=== PATIENT | female | born 1970 | race Hispanic/Latino ===

== ENCOUNTER 2016-05-18 23:36 | Emergency (ER) ==
[2016-05-18] MEDS ORDERED: DILAUDID IV ONE (23:51)
[2016-05-18] MEDS ORDERED: ZOFRAN IV ONE (23:52)
--- NOTE | 2016-05-18 23:56 | PROVIDER DOCUMENTATION ---
HPI-Abdominal Pain/GI Problem - General Chief Complaint: Abdominal Pain Stated Complaint: LT SIDE PAIN Time Seen by Provider: 05/18/16 23:43 Source: patient, family Allergies/Adverse Reactions: Patient Allergies Allergy/AdvReac Type Severity Reaction Status Date / Time No Known Allergies Allergy Verified 05/19/16 00:10 - History of Present Illness-ABD Nature of Presenting Problems: Pt is a 45 yof who presents to ER with CC of abdominal pain x4 days. Pt does not speak Vincentian, but her daughter who was with pt does speak Vincentian. Pt reports LLQ pain with constipation and vomiting. Pt describes pain as sharp, and her last meal was around 1900. Abdominal Pain Onset Location: reports: LLQ Quality of Pain: reports: sharp Severity in ED: reports: mild Onset/Duration: reports: 4 days ago Timing: reports: still present Associated Symptoms: reports: constipation, vomiting. denies: diarrhea, loss of appetite, nausea Last BM: unsure Review of Systems - Adult - REVIEW OF SYSTEMS - ADULT Constitutional: denies: chills, fever, fatique Eyes: reports: no symptoms reported Ears, Nose, Mouth & Throat: reports: no symptoms reported Cardiovascular: reports: no symptoms reported Respiratory: reports: no symptoms reported Gastrointestinal: reports: abdominal pain, constipation, vomiting. denies: hematemesis, diarrhea, nausea, poor appetite Genitourinary: reports: no symptoms reported Musculoskeletal: reports: no symptoms reported Integumentary: reports: no symptoms reported Neurological: reports: no symptoms reported Psychiatric: reports: no symptoms reported Endocrine: reports: no symptoms reported Hematologic/Lymphatic: reports: no symptoms reported Allergic/Immunologic: reports: no symptoms reported All Other Systems: Reviewed and Negative Past History - Adult - PAST MEDICAL HISTORY-ADULT Review of Records: reports: Nursing Assessment Review, Medications Reviewed - IMMUNIZATION STATUS Childhood Immunizations: See Nurse Assessment Flu Vaccine: See Nurse Assessment Physical Exam-General - PHYSICAL EXAM-ADULT Initial Vital Signs Reviewed: Yes - CONSTITUTIONAL General Appearance: alert, moderate distress - EYES Eyes: PERRL/EOMI, pink conjunctivae, fundi clear, no AV nicking - HEAD, EARS, NOSE, MOUTH & THROAT HENMT: normocephalic/atraumatic, moist mucous membranes - NECK Neck: non-tender, full range of motion, supple - RESPIRATORY Respiratory: chest non-tender, lungs clear, normal breath sounds - CARDIOVASCULAR Cardiovascular: normal peripheral pulses, regular rate, rhythm - GASTROINTESTINAL (ABDOMEN) Abdominal Exam: soft, abnormal bowel sounds (decreased bowel sounds), tenderness (LLQ) - LYMPHATIC Lymphatic: no adenopathy - MUSCULOSKELETAL Back Exam: no CVA tenderness, no vertebral tenderness Extremity: normal range of motion, non-tender, normal gait - NEUROLOGIC Neurologic: grossly normal, no motor/sensory deficits - PSYCHIATRIC Psych/Mental Status: normal thought content, normal thought process, oriented x 3, anxious Progress - PLAN OF CARE/RESULTS Progress/Plan/Lab Results: Vital Signs - 24 hr 05/18/16 23:38 Temperature 97.4 F L Pulse Rate 69 Respiratory 22 Rate Blood Pressure 202/118 O2 Sat by Pulse 100 Oximetry Orders Category Date Time Status ED: Urine Bedside ORDERED Care 05/19/16 00:14 Active Saline Loc DIRECTED Care 05/18/16 23:51 Active NPO Diet 05/18/16 23:[address] ABD/PELVIS W/ IV CONT ONLY [CT] Stat Exams 05/18/16 23:52 Taken CBC WITH ELECTRONIC DIFF [HEME] Stat Lab 05/19/16 00:21 Completed COMPREHENSIVE METABOLIC PANEL [CHEM] Stat Lab 05/19/16 00:21 Completed LIPASE [CHEM] Stat Lab 05/19/16 00:21 Completed TEST-SERUM [PREG] Stat Lab 05/19/16 00:21 Completed URINALYSIS W/POSS RFLX CULT [URINALYSIS] Stat Lab 05/19/16 00:13 Completed Hydromorphone [Dilaudid] Med 05/18/16 23:51 Discontinued 1 mg IV NOW ONE Ketorolac [Toradol] Med 05/19/16 00:58 Discontinued 30 mg IV NOW ONE Ondansetron [Zofran] Med 05/18/16 23:52 Discontinued 4 mg IV NOW ONE Laboratory Tests 05/19/16 05/19/16 05/19/16 00:13 00:21 00:21 WBC 11.90 H RBC 5.06 Hgb 14.9 Hct 43.4 MCV 85.8 MCH 29.4 MCHC 34.3 RDW Std Deviation 12.6 Plt Count 308 MPV 10.3 Immature Gran % (Auto) 0.4 Neut % (Auto) 67.6 Lymph % (Auto) 19.5 L [place] % (Auto) 12.1 H Eos % (Auto) 0.1 Baso % (Auto) 0.3 Immature Gran # (Auto) 0.05 H Neut # (Auto) 8.04 H Lymph # (Auto) 2.32 [place] # (Auto) 1.44 H Eos # (Auto) 0.01 Baso # (Auto) 0.04 Sodium 136 Potassium 3.8 Chloride 98 Carbon Dioxide 21 L Anion Gap 17 BUN 15 Creatinine 0.9 Estimated GFR/1.73 m2 > 60 BUN/Creatinine Ratio 17 Glucose 119 H Calculated Osmolality 274 Calcium 9.2 Total Bilirubin 0.41 AST 52 H ALT 45 H Alkaline Phosphatase 134 H Total Protein 8.5 H Albumin 4.0 Globulin 4.5 Albumin/Globulin Ratio 0.9 Lipase 32 Serum , Qual Urine Source CLEAN CATCH Urine Color YELLOW Urine Turbidity CLEAR Urine pH 6.5 Ur Specific [place] 1.014 Urine Protein 100 A Ur Glucose (Stick) NEGATIVE Ur Ketones (Stick) NEGATIVE Urine Blood SMALL A Urine Nitrite NEGATIVE Urine Bilirubin NEGATIVE Urobilinogen Dipstick NORMAL Urine Leukocytes NEGATIVE Urine WBC (Auto) <10 Urine RBC (Auto) 20-40 A U Epithel Cells (Auto) <10 Urine Bacteria (Auto) NEGATIVE 05/19/16 00:21 WBC RBC Hgb Hct MCV MCH MCHC RDW Std Deviation Plt Count MPV Immature Gran % (Auto) Neut % (Auto) Lymph % (Auto) [place] % (Auto) Eos % (Auto) Baso % (Auto) Immature Gran # (Auto) Neut # (Auto) Lymph # (Auto) [place] # (Auto) Eos # (Auto) Baso # (Auto) Sodium Potassium Chloride Carbon Dioxide Anion Gap BUN Creatinine Estimated GFR/1.73 m2 BUN/Creatinine Ratio Glucose Calculated Osmolality Calcium Total Bilirubin AST ALT Alkaline Phosphatase Total Protein Albumin Globulin Albumin/Globulin Ratio Lipase Serum , Qual NEGATIVE Urine Source Urine Color Urine Turbidity Urine pH Ur Specific [place] Urine Protein Ur Glucose (Stick) Ur Ketones (Stick) Urine Blood Urine Nitrite Urine Bilirubin Urobilinogen Dipstick Urine Leukocytes Urine WBC (Auto) Urine RBC (Auto) U Epithel Cells (Auto) Urine Bacteria (Auto) - CT/MRI 1 CT Study: Abdomen, Pelvis Impression: See EMR Report (Stone mid aspect of L ureter, 4x5mm. There is mild L hydronephrosis) Departure - Departure Time of Disposition Order: 02:01 DIAGNOSIS: Ureteral calculus, left Disposition: HOME 01 Certified Medical Emergency: Emergent Condition: Stable Additional Instructions: strain all urine, followup with urologist, Dr. Traore, in 1-2 days, plenty of fluids Prescriptions: Hydrocodone/APAP 5 mg/325 mg [[place]-5] 1 tab PO Q6H PRN PRN #14 tablet PRN Reason: Pain Ondansetron HCl [Zofran] 1 tab PO Q6H PRN PRN #12 tab PRN Reason: Vomiting Referrals: None,PCP [Primary Care Provider] - Kameron Traore MD [STAFF PHYSICIAN] - Instructions: Kidney Stones, [id number] Attestation - Scribe Verification/Attestation Scribe:: James Tyler Acting as Scribe for:: Stanley Rodriguez Scribe documention review:: This chart was documented by a scribe and accurately reflects the service the provider performed and the decisions made by the provider.
[2016-05-19 00:34] LABS: MANUAL DIFF NEEDED? NO
[2016-05-19 00:34] LABS: URINE CULTURE NEEDED? NO; URINE MICRO REVIEW NEEDED? NO; URINE SOURCE CLEAN CATCH
[2016-05-19 00:49] LABS: BASO% 0.3 % (0.0-0.8); EOS# 0.01 X1000 (0.0-0.7); EOS% 0.1 % (0.0-10.0); HEMATOCRIT 43.4 % (37.0-47.0); HEMOGLOBIN 14.9 g/dL (12.0-16.0); IMM GRAN# 0.05 X1000 (0.0-0.04); IMM GRAN% 0.4 % (0.0-0.5); LYMPH# 2.32 X1000 (1.2-3.4); LYMPH% 19.5 % (20.5-51.1); MCH 29.4 PG (27-31); MCHC 34.3 g/dL (33-37); MCV 85.8 FL (81-99); MONO# 1.44 X1000 (0.11-0.59); MONO% 12.1 % (1.7-9.3); MPV 10.3 FL (7.4-10.4); NEUT% 67.6 % (42.2-75.2); PLT 308 X1000 (130-400); RBC 5.06 XMIL (4.2-5.4)
[2016-05-19 00:53] LABS: BILIRUBIN URINE NEGATIVE (NEGATIVE); BLOOD URINE SMALL (NEGATIVE); COLOR YELLOW; GLUCOSE URINE NEGATIVE (NEGATIVE); LEUKOCYTES URINE NEGATIVE (NEGATIVE); NITRITE URINE NEGATIVE (NEGATIVE); PH URINE 6.5; PROTEIN URINE 100 mg/dL (NEGATIVE); SP GRAVITY URINE 1.014; TURBIDITY URINE CLEAR (CLEAR); UR EPITHELIAL CELLS <10 /HPF (<10); URINE BACTERIA NEGATIVE /HPF; URINE RBC 20-40 /HPF (<10); URINE WBC <10 /HPF (<10); UROBILINOGEN URINE NORMAL (NORMAL)
[2016-05-19] MEDS ORDERED: TORADOL IV ONE (00:58)
[2016-05-19 01:00] LABS: AGAP 17; ALKALINE PHOSPHATASE 134 U/L (32-104); BUN 15 mg/dL (8-22); CALCIUM 9.2 mg/dL (8.8-10.2); CHLORIDE 98 mmol/L (98-107); COSMO 274; GOT 52 U/L (10-30); GPT 45 U/L (10-36); LIPASE 32 U/L (13-60); POTASSIUM 3.8 mmol/L (3.5-5.1); SODIUM 136 mmol/L (136-145); TCO2 21 mmol/L (25-35); TOTAL BILIRUBIN 0.41 mg/dL (0.20-1.00); TOTAL PROTEIN 8.5 g/dL (6.3-8.3)
[2016-05-19 02:41] VITALS: BP 173/66
--- NOTE | 2016-05-19 06:45 | Diag Imaging Result Document ---
PROCEDURE NAME: CT ABD/PELVIS W/ IV CONT ONLY - 05/18/2016 CT ABDOMEN AND PELVIS WITH INTRAVENOUS CONTRAST: TECHNIQUE: Dose-reduction protocol. COMPARISON: No comparison films. FINDINGS: There is fatty infiltration of the liver. Normal spleen, pancreas, gallbladder, adrenal glands, and right kidney. There is a delayed left-sided nephrogram secondary to a 4 x 4 x 6 mm stone in the [id number] ureter. Minimal dilatation to the left ureter. Normal aorta. No bowel obstruction. Normal appendix. No abscess. Normal uterus. Neither ovary is enlarged. The urinary bladder is moderately distended and appears normal. IMPRESSION: 1. There is a 6 mm stone in the [id number] left ureter with mild hydronephrosis and a delayed nephrogram. 2. Fatty infiltration of the liver. A preliminary report was given at 1:51 a.m. [facility]
== END 2016-05-19 02:39 | disposition home or self-care (01) ==
LOC: ED 23:36
DX: N13.2 Hydronephrosis with renal and ureteral calculous obstruction (principal); K76.0 Fatty (change of) liver, not elsewhere classified; R10.32 Left lower quadrant pain; K59.00 Constipation, unspecified; R11.10 Vomiting, unspecified; R19.15 Other abnormal bowel sounds; R10.814 Left lower quadrant abdominal tenderness
CPT/HCPCS: 74177; 80053; 81001; 81025; 83690; 84703; 85025; 96374; 96375; J1170; J1885; J2405; Q9967